=== PATIENT | female | born 1950 | race Caucasian/White ===

== ENCOUNTER 2022-09-28 01:26 | Inpatient (IN) | payer MEDICARE, BC ==
[2022-09-28] MEDS ORDERED: Ondansetron 4 MG Tab.DIS PO PRN (13:34)
[2022-09-28] MEDS ORDERED: Albuterol 8 GM Inhaler INH PRN (13:34)
[2022-09-28] MEDS ORDERED: Magnesium Hydroxide 400 MG/5 ML Susp 30 ML Cup PO PRN (13:34)
[2022-09-28] MEDS ORDERED: Acetaminophen 325 MG Tab PO PRN (13:34)
[2022-09-28] MEDS: Acetaminophen 325 MG Tab PO SCH ×2 (14:36→20:07)
[2022-09-28] MEDS: Ibuprofen 200 MG Tab PO SCH ×2 (14:36→20:06)
[2022-09-28] MEDS: Lutein/Minerals/Vitamin C/Vitamin E Acetate Cap PO SCH (20:06)
[2022-09-29] MEDS: Acetaminophen/HYDROcodone 325-5 MG Tab PO PRN ×2 (04:14→15:07)
[2022-09-29] MEDS: Ibuprofen 200 MG Tab PO SCH ×3 (09:14→20:38)
[2022-09-29] MEDS: Acetaminophen 325 MG Tab PO SCH ×3 (09:14→20:40)
[2022-09-29] MEDS: Ferrous Sulfate 325 MG Tab PO SCH (09:15)
[2022-09-29] MEDS: Cholecalciferol (Vitamin D3) 25 MCG Tab PO SCH (09:16)
[2022-09-29] MEDS: Multivitamin Tab PO SCH (09:16)
[2022-09-29] MEDS: Lidocaine 4% 1 each Patch TOP SCH (09:17)
[2022-09-29] MEDS: metFORMIN 500 MG Tab.ER PO SCH (09:17)
[2022-09-29] MEDS: Lisinopril 20 MG Tab PO SCH (09:21)
[2022-09-29] MEDS ORDERED: SUMAtriptan 50 MG Tab PO PRN (16:34)
[2022-09-29] MEDS: Cyclobenzaprine 10 MG Tab PO SCH (20:37)
[2022-09-29] MEDS: Magnesium Chloride 64 MG Tab.ER PO SCH (20:38)
[2022-09-29] MEDS: Lutein/Minerals/Vitamin C/Vitamin E Acetate Cap PO SCH (20:39)
[2022-09-29] MEDS ORDERED: Melatonin 3 MG Tab PO SCH (21:00)
[2022-09-30] MEDS: Acetaminophen/HYDROcodone 325-5 MG Tab PO PRN ×3 (01:29→18:40)
[2022-09-30] MEDS: Lidocaine 4% 1 each Patch TOP SCH (08:13)
[2022-09-30] MEDS: Multivitamin Tab PO SCH (08:18)
[2022-09-30] MEDS: Ferrous Sulfate 325 MG Tab PO SCH (08:18)
[2022-09-30] MEDS: Ibuprofen 200 MG Tab PO SCH ×3 (08:19→21:42)
[2022-09-30] MEDS: Acetaminophen 325 MG Tab PO SCH ×3 (08:19→21:44)
[2022-09-30] MEDS: Lisinopril 20 MG Tab PO SCH (08:21)
[2022-09-30] MEDS: metFORMIN 500 MG Tab.ER PO SCH (08:21)
[2022-09-30] MEDS: Cholecalciferol (Vitamin D3) 25 MCG Tab PO SCH (08:23)
[2022-09-30] MEDS: Loratadine 10 MG Tab PO SCH (08:24)
[2022-09-30] MEDS: Cyclobenzaprine 10 MG Tab PO SCH (21:39)
[2022-09-30] MEDS: Magnesium Chloride 64 MG Tab.ER PO SCH (21:42)
[2022-09-30] MEDS: Lutein/Minerals/Vitamin C/Vitamin E Acetate Cap PO SCH (21:44)
[2022-10-01] MEDS: Acetaminophen/HYDROcodone 325-5 MG Tab PO PRN ×3 (00:44→18:03)
[2022-10-01] MEDS: Lidocaine 4% 1 each Patch TOP SCH (08:22)
[2022-10-01] MEDS: metFORMIN 500 MG Tab.ER PO SCH (08:22)
[2022-10-01] MEDS: Acetaminophen 325 MG Tab PO SCH ×3 (08:23→20:16)
[2022-10-01] MEDS: Ibuprofen 200 MG Tab PO SCH ×3 (08:23→20:15)
[2022-10-01] MEDS: Ferrous Sulfate 325 MG Tab PO SCH (08:23)
[2022-10-01] MEDS: Multivitamin Tab PO SCH (08:23)
[2022-10-01] MEDS: Loratadine 10 MG Tab PO SCH (08:23)
[2022-10-01] MEDS: Lisinopril 20 MG Tab PO SCH (08:26)
[2022-10-01] MEDS: Cholecalciferol (Vitamin D3) 25 MCG Tab PO SCH (08:27)
[2022-10-01] MEDS: Lutein/Minerals/Vitamin C/Vitamin E Acetate Cap PO SCH (20:17)
[2022-10-01] MEDS: Magnesium Chloride 64 MG Tab.ER PO SCH (20:22)
[2022-10-01] MEDS ORDERED: Cyclobenzaprine 10 MG Tab PO SCH (21:00)
[2022-10-02] MEDS: Acetaminophen/HYDROcodone 325-5 MG Tab PO PRN ×2 (00:17→16:27)
[2022-10-02] MEDS: Ibuprofen 200 MG Tab PO SCH ×3 (09:25→20:57)
[2022-10-02] MEDS: Multivitamin Tab PO SCH (09:25)
[2022-10-02] MEDS: Ferrous Sulfate 325 MG Tab PO SCH (09:25)
[2022-10-02] MEDS: Loratadine 10 MG Tab PO SCH (09:25)
[2022-10-02] MEDS: Lisinopril 20 MG Tab PO SCH ×2 (09:25→09:30)
[2022-10-02] MEDS: metFORMIN 500 MG Tab.ER PO SCH (09:25)
[2022-10-02] MEDS: Cholecalciferol (Vitamin D3) 25 MCG Tab PO SCH (09:26)
[2022-10-02] MEDS: Lidocaine 4% 1 each Patch TOP SCH (09:26)
[2022-10-02] MEDS: Acetaminophen 325 MG Tab PO SCH ×3 (09:26→20:58)
[2022-10-02] MEDS: Cyclobenzaprine 10 MG Tab PO SCH (20:54)
[2022-10-02] MEDS: Magnesium Chloride 64 MG Tab.ER PO SCH (20:56)
[2022-10-02] MEDS: Lutein/Minerals/Vitamin C/Vitamin E Acetate Cap PO SCH (20:57)
[2022-10-03] MEDS: Acetaminophen/HYDROcodone 325-5 MG Tab PO PRN ×2 (02:30→22:35)
[2022-10-03] MEDS: Ferrous Sulfate 325 MG Tab PO SCH (09:29)
[2022-10-03] MEDS: Cholecalciferol (Vitamin D3) 25 MCG Tab PO SCH (09:29)
[2022-10-03] MEDS: Acetaminophen 325 MG Tab PO SCH ×3 (09:30→20:57)
[2022-10-03] MEDS: Ibuprofen 200 MG Tab PO SCH ×3 (09:31→20:57)
[2022-10-03] MEDS: Lidocaine 4% 1 each Patch TOP SCH (09:32)
[2022-10-03] MEDS: Loratadine 10 MG Tab PO SCH (09:32)
[2022-10-03] MEDS: metFORMIN 500 MG Tab.ER PO SCH (09:33)
[2022-10-03] MEDS: Lisinopril 10 MG Tab PO SCH (09:34)
[2022-10-03] MEDS: Multivitamin Tab PO SCH (09:45)
[2022-10-03] MEDS: Cyclobenzaprine 10 MG Tab PO SCH (20:56)
[2022-10-03] MEDS: Lutein/Minerals/Vitamin C/Vitamin E Acetate Cap PO SCH (20:56)
[2022-10-03] MEDS: Magnesium Chloride 64 MG Tab.ER PO SCH (20:59)
[2022-10-04] MEDS: Lidocaine 4% 1 each Patch TOP SCH (08:18)
[2022-10-04] MEDS: Loratadine 10 MG Tab PO SCH (08:19)
[2022-10-04] MEDS: metFORMIN 500 MG Tab.ER PO SCH (08:19)
[2022-10-04] MEDS: Ferrous Sulfate 325 MG Tab PO SCH (08:19)
[2022-10-04] MEDS: Multivitamin Tab PO SCH (08:19)
[2022-10-04] MEDS: Ibuprofen 200 MG Tab PO SCH ×3 (08:20→20:20)
[2022-10-04] MEDS: Lisinopril 10 MG Tab PO SCH (08:20)
[2022-10-04] MEDS: Acetaminophen 325 MG Tab PO SCH (08:21)
[2022-10-04] MEDS: Cholecalciferol (Vitamin D3) 25 MCG Tab PO SCH (08:21)
[2022-10-04] MEDS: Acetaminophen 500 MG Tab PO SCH ×3 (10:34→20:20)
[2022-10-04] MEDS: Lutein/Minerals/Vitamin C/Vitamin E Acetate Cap PO SCH (20:19)
[2022-10-04] MEDS: Magnesium Chloride 64 MG Tab.ER PO SCH (20:19)
[2022-10-04] MEDS: Cyclobenzaprine 10 MG Tab PO SCH (20:20)
[2022-10-05] MEDS: Lidocaine 4% 1 each Patch TOP SCH (08:09)
[2022-10-05] MEDS: Loratadine 10 MG Tab PO SCH (08:11)
[2022-10-05] MEDS: Multivitamin Tab PO SCH (08:11)
[2022-10-05] MEDS: Lisinopril 10 MG Tab PO SCH (08:11)
[2022-10-05] MEDS: metFORMIN 500 MG Tab.ER PO SCH (08:11)
[2022-10-05] MEDS: Ferrous Sulfate 325 MG Tab PO SCH (08:11)
[2022-10-05] MEDS: Ibuprofen 200 MG Tab PO SCH ×3 (08:12→21:46)
[2022-10-05] MEDS: Acetaminophen 500 MG Tab PO SCH ×3 (08:12→21:45)
[2022-10-05] MEDS: Cholecalciferol (Vitamin D3) 25 MCG Tab PO SCH (08:13)
[2022-10-05] MEDS: Magnesium Chloride 64 MG Tab.ER PO SCH (21:45)
[2022-10-05] MEDS: Lutein/Minerals/Vitamin C/Vitamin E Acetate Cap PO SCH (21:46)
[2022-10-05] MEDS: Mirtazapine 15 MG Tab PO SCH (21:47)
[2022-10-06] MEDS: Acetaminophen 500 MG Tab PO PRN (02:31)
[2022-10-06] MEDS: metFORMIN 500 MG Tab.ER PO SCH (09:03)
[2022-10-06] MEDS: Ferrous Sulfate 325 MG Tab PO SCH (09:03)
[2022-10-06] MEDS: Ibuprofen 200 MG Tab PO SCH ×3 (09:03→21:53)
[2022-10-06] MEDS: Loratadine 10 MG Tab PO SCH (09:03)
[2022-10-06] MEDS: Lisinopril 10 MG Tab PO SCH (09:06)
[2022-10-06] MEDS: Acetaminophen 500 MG Tab PO SCH ×3 (09:07→21:52)
[2022-10-06] MEDS: Cholecalciferol (Vitamin D3) 25 MCG Tab PO SCH (09:07)
[2022-10-06] MEDS: Multivitamin Tab PO SCH (09:07)
[2022-10-06] MEDS: Lidocaine 4% 1 each Patch TOP SCH (09:08)
[2022-10-06] MEDS: Magnesium Chloride 64 MG Tab.ER PO SCH (21:52)
[2022-10-06] MEDS: Mirtazapine 15 MG Tab PO SCH (21:54)
[2022-10-06] MEDS: Lutein/Minerals/Vitamin C/Vitamin E Acetate Cap PO SCH (21:54)
[2022-10-07] MEDS: Multivitamin Tab PO SCH (09:29)
[2022-10-07] MEDS: Loratadine 10 MG Tab PO SCH (09:30)
[2022-10-07] MEDS: Lidocaine 4% 1 each Patch TOP SCH (09:30)
[2022-10-07] MEDS: Ferrous Sulfate 325 MG Tab PO SCH (09:30)
[2022-10-07] MEDS: metFORMIN 500 MG Tab.ER PO SCH (09:30)
[2022-10-07] MEDS: Lisinopril 10 MG Tab PO SCH (09:31)
[2022-10-07] MEDS: Ibuprofen 200 MG Tab PO SCH ×3 (09:31→21:41)
[2022-10-07] MEDS: Acetaminophen 500 MG Tab PO SCH ×3 (09:32→21:44)
[2022-10-07] MEDS: Cholecalciferol (Vitamin D3) 25 MCG Tab PO SCH (09:33)
[2022-10-07] MEDS: Magnesium Chloride 64 MG Tab.ER PO SCH (21:41)
[2022-10-07] MEDS: Mirtazapine 15 MG Tab PO SCH (21:42)
[2022-10-07] MEDS: Lutein/Minerals/Vitamin C/Vitamin E Acetate Cap PO SCH (21:43)
[2022-10-08] MEDS: Acetaminophen 500 MG Tab PO PRN (05:12)
[2022-10-08] MEDS: Loratadine 10 MG Tab PO SCH (08:07)
[2022-10-08] MEDS: Lidocaine 4% 1 each Patch TOP SCH (08:07)
[2022-10-08] MEDS: Ferrous Sulfate 325 MG Tab PO SCH (08:07)
[2022-10-08] MEDS: Acetaminophen 500 MG Tab PO SCH (08:07)
[2022-10-08] MEDS: Ibuprofen 200 MG Tab PO SCH (08:07)
[2022-10-08] MEDS: metFORMIN 500 MG Tab.ER PO SCH (08:07)
[2022-10-08] MEDS: Cholecalciferol (Vitamin D3) 25 MCG Tab PO SCH (08:08)
[2022-10-08] MEDS: Multivitamin Tab PO SCH (08:08)
[2022-10-08] MEDS: Lisinopril 10 MG Tab PO SCH (08:09)
== END 2022-10-08 08:40 | disposition home or self-care (01) | DRG 560 ==
LOC: FB.MS 12:57
PROVIDERS: ADMIT Family Medicine; ATTEND Family Medicine
DX: S32.10XD Unspecified fracture of sacrum, subsequent encounter for fracture with routine healing (principal); D62 Acute posthemorrhagic anemia; S32.591D Other specified fracture of right pubis, subsequent encounter for fracture with routine healing; K59.00 Constipation, unspecified; G44.209 Tension-type headache, unspecified, not intractable; G43.909 Migraine, unspecified, not intractable, without status migrainosus; E11.9 Type 2 diabetes mellitus without complications; I10 Essential (primary) hypertension; J45.909 Unspecified asthma, uncomplicated; G43.009 Migraine without aura, not intractable, without status migrainosus; W01.0XXA Fall on same level from slipping, tripping and stumbling without subsequent striking against object, initial encounter; E86.0 Dehydration; Z79.84 Long term (current) use of oral hypoglycemic drugs; Z79.899 Other long term (current) drug therapy
CPT/HCPCS: 36415; 82947; 85025; 97110-GP; 97116-GP; 97161-GP; 97165-GO; 97530-GO; 97530-GP; 97535-GO; 99306; 99310; 99315; A9270-GY